=== PATIENT | female | born 1945 | race Caucasian/White ===

== ENCOUNTER 2020-06-27 21:26 | Inpatient (IN) ==
[2020-06-27] MEDS ORDERED: methylPREDNISolone 125 MG/2 ML VIAL IVP ONE (21:32)
[2020-06-27] MEDS ORDERED: Ipratropium/Albuterol Neb 3 ML IH ONE (21:32)
[2020-06-27] MEDS ORDERED: DilTIAZem 50 MG/50 ML IV.SOLN IVC SCH (21:52)
[2020-06-27 22:07] LABS: Basophils % 0.1 %; Hemoglobin 10.4 g/dL (11.5-15.4); Lymphocytes % 3.5 %; Nucleated Red Blood Cells 0.1 /100 WBC (0)
[2020-06-27 22:09] LABS: Hematocrit 36.8 % (35.3-44.9); Immature Granulocytes % 0.5 % (0-4); Lymphocytes # 0.8 K/mcL (0.6-4.6); Mean Corpuscular HGB Conc 28.3 g/dL (31.6-35.5); Mean Corpuscular Hemoglobin 22.2 pg (28.0-33.3); Mean Corpuscular Volume 78.6 fL (83.0-100.0); Mean Platelet Volume 9.3 fL (9.4-12.4); Monocytes # 1.8 K/mcL (0.0-1.3); Monocytes % 8.3 %; Neutrophils # 19.2 K/mcL (1.6-8.9); Platelet Count 487 K/mcL (140-400); Red Blood Count 4.68 M/mcL (3.82-4.97); Red Cell Distribution Width 25.3 % (11.5-14.5); Segmented Neutrophils % 87.6 %; White Blood Count 21.9 K/mcL (4.3-11.1)
[2020-06-27] MEDS ORDERED: cefTRIAXone 1,000 MG in 0.9 % Sodium Chloride Mini Bag 100 ML IVPB ONE (22:25)
[2020-06-27] MEDS ORDERED: Azithromycin 500 MG in 0.9 % Sodium Chloride 250 ML IVPB ONE (22:25)
[2020-06-27] MEDS ORDERED: cefTRIAXone 1,000 MG in Water for inj. (sterile) 10 ML IVP ONE (22:30)
[2020-06-27 22:31] LABS: Alanine Aminotransferase 30 Units/L (7-52); Albumin 4.1 g/dL (3.5-5.7); Albumin/Globulin Ratio 1.5 (1.1-2.2); Alkaline Phosphatase 70 Units/L (34-104); Aspartate Amino Transferase 24 Units/L (13-39); BUN/Creatinine Ratio 30 (6-26); Bilirubin,Direct 0.1 mg/dL (0.0-0.2); Bilirubin,Indirect 0.4 mg/dL (0.0-1.0); Bilirubin,Total 0.5 mg/dL (0.3-1.0); Blood Urea Nitrogen 25 mg/dL (8-23); Calcium 9.1 mg/dL (8.6-10.3); Carbon Dioxide 21 mEq/L (23-29); Chloride 105 mEq/L (98-107); Globulin 2.8 g/dL (2.4-3.5); Glucose 318 mg/dL (70-105); Osmolality,Calculated 301 (280-300); Potassium 4.8 mEq/L (3.5-5.1); Sodium 137 mEq/L (136-145); Total Protein 6.9 g/dL (6.4-8.9); eGFR For African Americans > 60 (> 60); eGFR For Non-African Americans > 60 (> 60)
[2020-06-27 22:38] LABS: Troponin I 0.82 ng/mL (< 0.04)
[2020-06-27 22:40] LABS: Burr Cells 1+ (Not Present); Platelet Clumps Few (Not Present); Schistocytes 1+ (Not Present)
[2020-06-27 22:41] LABS: Acanthocytes 1+ (Not Present); Poikilocytosis 1+ (Not Present)
[2020-06-27 22:44] LABS: Anisocytosis 3+ (Not Present)
[2020-06-27 22:46] LABS: Reactive Lymphocytes Present (Not Present)
[2020-06-27] MEDS ORDERED: *HR* Heparin 5,000 UNIT/ML VIAL IVP ONE (23:16)
[2020-06-27] MEDS ORDERED: *HR* Heparin 5,000 UNIT/ML VIAL IVP PRN (23:16)
[2020-06-27] MEDS ORDERED: Aspirin 81 MG TAB.CHEW PO ONE (23:17)
[2020-06-27] MEDS ORDERED: Furosemide 40 MG/4 ML VIAL IVP ONE (23:18)
[2020-06-27] MEDS ORDERED: Ondansetron 4 MG/2 ML VIAL IVP PRN (23:39)
[2020-06-27] MEDS ORDERED: Acetaminophen 325 MG TABLET PO PRN (23:39)
[2020-06-27] MEDS ORDERED: Naloxone 0.4 MG/ML INJ IVP PRN (23:39)
[2020-06-28] MEDS ORDERED: Dextrose Gel 15 GM/37.5 ML TUBE PO PRN ×2 (00:33)
[2020-06-28] MEDS ORDERED: D5% in Water 1,000 ML IVC PRN (00:33)
[2020-06-28] MEDS ORDERED: *HR* Dextrose 50 % in Water (Vial) 50 ML VIAL IVP PRN (00:33)
[2020-06-28] MEDS ORDERED: Perflutren Lipid Microsphere 1.3 ML in 0.9 % Sodium Chloride 8.7 ML IVP PRN (00:34)
[2020-06-28 01:11] LABS: Adenovirus Not Detected (Not Detect); Bordetella Pertussis Not Detected (Not Detect); Chlamydophila pneumoniae Not Detected (Not Detect); Coronavirus 229E Not Detected (Not Detect); Coronavirus HKU1 Not Detected (Not Detect); Coronavirus NL63 Not Detected (Not Detect); Coronavirus OC43 Not Detected (Not Detect); Human Metapneumovirus Not Detected (Not Detect); Human Rhinovirus/Enterovirus DETECTED (Not Detect); Influenza A Subtype 2009 H1 Not Detected (Not Detect); Influenza B Not Detected (Not Detect); Mycoplasma pneumoniae Not Detected (Not Detect); Parainfluenza Virus 1 Not Detected (Not Detect); Parainfluenza Virus 2 Not Detected (Not Detect); Parainfluenza Virus 3 Not Detected (Not Detect); Parainfluenza Virus 4 Not Detected (Not Detect); Respiratory Syncytial Virus Not Detected (Not Detect); SARS-CoV-2 Not Detected (Not Detect)
[2020-06-28 01:51] LABS: Hematocrit 38.7 % (35.3-44.9); Hemoglobin 10.8 g/dL (11.5-15.4); Mean Corpuscular HGB Conc 27.9 g/dL (31.6-35.5); Mean Corpuscular Hemoglobin 22.1 pg (28.0-33.3); Mean Corpuscular Volume 79.3 fL (83.0-100.0); Mean Platelet Volume 9.3 fL (9.4-12.4); Platelet Count 494 K/mcL (140-400); Red Blood Count 4.88 M/mcL (3.82-4.97); Red Cell Distribution Width 25.2 % (11.5-14.5); White Blood Count 27.1 K/mcL (4.3-11.1)
[2020-06-28] MEDS: Heparin 25,000UNIT/250ML 1/2NS 25,000 UNIT/250 ML IV.SOLN IVC SCH (01:52)
[2020-06-28 01:58] LABS: Heparin anti-factor XA UFH < 0.04 IU/mL (0.30-0.70)
[2020-06-28 02:01] LABS: ABG Base Excess -5 mEq/L (-2 to 3); ABG HCO3 25 mEq/L (21-27); ABG Oxygen Saturation 89 % (95-98); ABG PCO2 70 mmHg (35-45); ABG PH 7.16 pH Units (7.32-7.45); ABG PO2 72 mmHg (85-104); ABG TCO2 27 mEq/L (20-26)
[2020-06-28 02:39] LABS: ABG Base Excess -4 mEq/L (-2 to 3); ABG HCO3 25 mEq/L (21-27); ABG Oxygen Saturation 96 % (95-98); ABG PCO2 63 mmHg (35-45); ABG PH 7.21 pH Units (7.32-7.45); ABG PO2 105 mmHg (85-104); ABG TCO2 27 mEq/L (20-26); Blood Gas VT 500 cc
[2020-06-28] MEDS ORDERED: *HR* Metoprolol 5 MG/5 ML VIAL IVP ONE (02:53)
[2020-06-28 02:58] LABS: Bilirubin,Urine Negative (Negative); Blood,Urine Trace (Negative); Clarity,Urine Clear (Clear); Color,Urine Light-Yellow (Yellow); Glucose,Urine (UA) Normal (Normal); Hyaline Casts,Urine Many per lpf (None Seen); Ketones,Urine Negative (Negative); Leukocyte Esterase,Urine Negative (Negative); Mucus,Urine Few per lpf (None-Few); Nitrite,Urine Negative (Negative); PH,Urine 5.5 pH Units (5.0-8.0); Protein,Urine 50 mg/dL (Neg-Trace); RBC,Urine 0-3 per hpf (0-3); Specific Gravity,Urine 1.013 (1.010-1.025); Squamous Epithelial Cell,Urine Few per hpf (None-Few); Urobilinogen,Urine Normal (Normal)
[2020-06-28] MEDS ORDERED: *HR* LORazepam 2 MG/ML VIAL IVP ONE (03:30)
[2020-06-28] MEDS ORDERED: *HR* LORazepam 2 MG/ML VIAL ONE (03:32)
[2020-06-28 04:14] LABS: VBG HCO3 23 mEq/L (21-27); VBG Ionized Calcium 1.11 mmol/L (1.15-1.35); VBG PCO2 63 mmHg (41-51); VBG PH 7.17 pH Units (7.32-7.42); VBG PO2 70 mmHg (25-50)
[2020-06-28 04:15] LABS: Basophils % 0.1 %; Hemoglobin 10.5 g/dL (11.5-15.4); Nucleated Red Blood Cells 0.1 /100 WBC (0)
[2020-06-28 04:16] LABS: Hematocrit 37.3 % (35.3-44.9); Immature Granulocytes % 1.1 % (0-4); Lymphocytes # 0.5 K/mcL (0.6-4.6); Lymphocytes % 1.8 %; Mean Corpuscular HGB Conc 28.2 g/dL (31.6-35.5); Mean Corpuscular Hemoglobin 22.6 pg (28.0-33.3); Mean Corpuscular Volume 80.2 fL (83.0-100.0); Mean Platelet Volume 9.3 fL (9.4-12.4); Monocytes # 2.3 K/mcL (0.0-1.3); Neutrophils # 25.3 K/mcL (1.6-8.9); Platelet Count 416 K/mcL (140-400); Red Blood Count 4.65 M/mcL (3.82-4.97); White Blood Count 28.4 K/mcL (4.3-11.1)
[2020-06-28] MEDS ORDERED: Artificial Tears SOLN 15 ML BOTTLE BOTH EYES PRN (04:17)
[2020-06-28] MEDS ORDERED: 0.9 % Sodium Chloride 1,000 ML ONE ×2 (04:31→04:39)
[2020-06-28 04:39] LABS: Estimated Average Glucose 111 mg/dl
[2020-06-28] MEDS: Norepinephrine 4 MG/254 ML IV.SOLN IVC SCH (04:50)
[2020-06-28 05:05] LABS: ABG Base Excess -9 mEq/L (-2 to 3); ABG HCO3 18 mEq/L (21-27); ABG Oxygen Saturation 99 % (95-98); ABG PCO2 44 mmHg (35-45); ABG PH 7.22 pH Units (7.32-7.45); ABG PO2 164 mmHg (85-104); ABG TCO2 19 mEq/L (20-26); Blood Gas VT 480 cc
[2020-06-28 05:15] LABS: Anisocytosis 1+ (Not Present); Poikilocytosis 2+ (Not Present)
[2020-06-28 05:16] LABS: Burr Cells 1+ (Not Present); Platelet Estimate Normal (Normal); Toxic Granulation Present (Not Present)
[2020-06-28] MEDS: FentaNYL (PF) 1,000 MCG/100 ML IV.SOLN IVC SCH ×2 (05:34→16:44)
[2020-06-28] MEDS: Insulin LISPRO 300 UNITS/3 ML VIAL SQ SCH ×3 (07:44→17:26)
[2020-06-28] MEDS: Artificial Tears SOLN 15 ML BOTTLE BOTH EYES SCH ×5 (07:54→23:50)
[2020-06-28] MEDS: Chlorhexidine Rinse 15 ML MOUTHWASH MM SCH ×2 (07:56→20:24)
[2020-06-28] MEDS: Pantoprazole 40 MG VIAL IVP SCH (07:56)
[2020-06-28] MEDS: Piperacillin/Tazobactam 3.375 GM in 0.9 % Sodium Chloride Mini Bag 100 ML IVPB SCH ×3 (07:56→23:50)
[2020-06-28] MEDS: Ipratropium/Albuterol Neb 3 ML IH SCH ×4 (08:12→20:35)
[2020-06-28 09:28] LABS: Calcium 9.3 mg/dL (8.6-10.3); Magnesium 3.9 mg/dL (1.6-2.6); Phosphorous 8.9 mg/dL (2.7-4.5); Potassium 5.4 mEq/L (3.5-5.1)
[2020-06-28] MEDS: Budesonide/Formoterol 160/4.5 1 PUFF INH IH SCH ×2 (09:55→21:28)
[2020-06-28] MEDS ORDERED: Calcium Gluconate 1gm/50mL 1 GM/50 ML BAG IVPB PRN (10:03)
[2020-06-28] MEDS ORDERED: Potassium Phosphate 44 MEQ in 0.9 % Sodium Chloride 250 ML IVPB PRN (10:03)
[2020-06-28 10:12] LABS: Troponin I 1.21 ng/mL (< 0.04)
[2020-06-28] MEDS ORDERED: Calcium Gluconate 1gm/50mL 1 GM/50 ML BAG IVPB ONE ×2 (10:18→10:53)
[2020-06-28] MEDS: Dexmedetomidine HCl 400 MCG/100 ML MLS IVC SCH (10:44)
[2020-06-28 10:59] LABS: Calcium 7.9 mg/dL (8.6-10.3); Potassium 5.1 mEq/L (3.5-5.1)
[2020-06-28 11:04] LABS: Troponin I 2.49 ng/mL (< 0.04)
[2020-06-28] MEDS: Ringers Solution, Lactated 1,000 ML IVC SCH (11:30)
[2020-06-28] MEDS: Aspirin 81 MG TAB.CHEW PO SCH (12:40)
[2020-06-28 13:58] LABS: Basophils % 0.1 %; Hematocrit 31.7 % (35.3-44.9); Hemoglobin 9.1 g/dL (11.5-15.4); Immature Granulocytes % 0.9 % (0-4); Lymphocytes # 0.3 K/mcL (0.6-4.6); Lymphocytes % 1.1 %; Mean Corpuscular HGB Conc 28.7 g/dL (31.6-35.5); Mean Corpuscular Hemoglobin 22.3 pg (28.0-33.3); Mean Corpuscular Volume 77.7 fL (83.0-100.0); Mean Platelet Volume 9.3 fL (9.4-12.4); Monocytes % 2.7 %; Nucleated Red Blood Cells 0.4 /100 WBC (0); Platelet Count 265 K/mcL (140-400); Red Blood Count 4.08 M/mcL (3.82-4.97); Red Cell Distribution Width 24.3 % (11.5-14.5); Segmented Neutrophils % 95.2 %; White Blood Count 27.3 K/mcL (4.3-11.1)
[2020-06-28 13:59] LABS: Monocytes # 0.7 K/mcL (0.0-1.3)
[2020-06-28 14:10] LABS: Anisocytosis 2+ (Not Present); Hypochromasia Present (Not Present); Microcytosis Present (Not Present); Platelet Estimate Normal (Normal); Poikilocytosis 2+ (Not Present); Toxic Granulation Present (Not Present)
[2020-06-28 14:12] LABS: Target Cells 1+ (Not Present)
[2020-06-28 14:13] LABS: Acanthocytes 1+ (Not Present)
[2020-06-28] MEDS: *HR* Heparin 5,000 UNIT/ML VIAL IVP PRN (17:40)
[2020-06-28] MEDS ORDERED: *HR* Etomidate 20 MG/10 ML AMPUL IVP ONE (18:00)
[2020-06-28] MEDS ORDERED: *HR* Midazolam HCl 2 MG/2 ML VIAL IV ONE (18:00)
[2020-06-28] MEDS: Levalbuterol Neb 0.63 MG/3 ML IH SCH (21:28)
[2020-06-29] MEDS: Insulin LISPRO 300 UNITS/3 ML VIAL SQ SCH ×4 (00:03→17:23)
[2020-06-29] MEDS: Ringers Solution, Lactated 1,000 ML IVC SCH (00:54)
[2020-06-29] MEDS ORDERED: Vancomycin 500 MG in 0.9 % Sodium Chloride Mini Bag 100 ML IVPB SCH (01:00)
[2020-06-29] MEDS: FentaNYL (PF) 1,000 MCG/100 ML IV.SOLN IVC SCH ×2 (02:44→16:13)
[2020-06-29] MEDS: Levalbuterol Neb 0.63 MG/3 ML IH SCH ×4 (03:53→22:18)
[2020-06-29 04:14] LABS: ABG Base Excess -5 mEq/L (-2 to 3); ABG HCO3 23 mEq/L (21-27); ABG Oxygen Saturation 97 % (95-98); ABG PCO2 54 mmHg (35-45); ABG PH 7.24 pH Units (7.32-7.45); ABG PO2 104 mmHg (85-104); ABG TCO2 25 mEq/L (20-26); Blood Gas VT 550 cc
[2020-06-29] MEDS: Artificial Tears SOLN 15 ML BOTTLE BOTH EYES SCH ×6 (04:31→23:36)
[2020-06-29 05:04] LABS: Basophils % 0.1 %
[2020-06-29 05:06] LABS: Hematocrit 30.4 % (35.3-44.9); Hemoglobin 8.6 g/dL (11.5-15.4); Immature Granulocytes % 0.8 % (0-4); Lymphocytes # 0.5 K/mcL (0.6-4.6); Lymphocytes % 2.4 %; Mean Corpuscular HGB Conc 28.3 g/dL (31.6-35.5); Mean Corpuscular Volume 77.7 fL (83.0-100.0); Mean Platelet Volume 9.3 fL (9.4-12.4); Monocytes # 0.4 K/mcL (0.0-1.3); Monocytes % 2.1 %; Neutrophils # 19.2 K/mcL (1.6-8.9); Nucleated Red Blood Cells 1.9 /100 WBC (0); Platelet Count 138 K/mcL (140-400); Red Blood Count 3.91 M/mcL (3.82-4.97); Red Cell Distribution Width 24.1 % (11.5-14.5); Segmented Neutrophils % 94.6 %; White Blood Count 20.3 K/mcL (4.3-11.1)
[2020-06-29 05:21] LABS: Calcium 8.4 mg/dL (8.6-10.3); Potassium 4.8 mEq/L (3.5-5.1)
[2020-06-29 05:22] LABS: Magnesium 2.8 mg/dL (1.6-2.6)
[2020-06-29 05:25] LABS: Troponin I 1.62 ng/mL (< 0.04)
[2020-06-29] MEDS: Norepinephrine 4 MG/254 ML IV.SOLN IVC SCH (05:34)
[2020-06-29] MEDS: Pantoprazole 40 MG VIAL IVP SCH (05:35)
[2020-06-29] MEDS: Dexmedetomidine HCl 400 MCG/100 ML MLS IVC SCH (05:35)
[2020-06-29] MEDS: *HR* Heparin 5,000 UNIT/ML VIAL IVP PRN (06:15)
[2020-06-29 06:57] LABS: Anisocytosis 1+ (Not Present); Poikilocytosis 1+ (Not Present)
[2020-06-29 06:58] LABS: Hypochromasia Present (Not Present); Platelet Estimate Normal (Normal)
[2020-06-29 07:26] LABS: Sodium, Urine 60.4 mEq/L
[2020-06-29] MEDS: Piperacillin/Tazobactam 3.375 GM in 0.9 % Sodium Chloride Mini Bag 100 ML IVPB SCH ×3 (08:50→23:35)
[2020-06-29] MEDS: Aspirin 81 MG TAB.CHEW PO SCH (08:51)
[2020-06-29] MEDS: Chlorhexidine Rinse 15 ML MOUTHWASH MM SCH ×2 (08:51→20:24)
[2020-06-29] MEDS: Budesonide/Formoterol 160/4.5 1 PUFF INH IH SCH ×2 (09:23→22:18)
[2020-06-29] MEDS: MethylPREDNISolone 40 MG/ML VIAL IVP SCH (12:45)
[2020-06-29] MEDS: Heparin 25,000UNIT/250ML 1/2NS 25,000 UNIT/250 ML IV.SOLN IVC SCH (19:00)
[2020-06-30] MEDS: Dexmedetomidine HCl 400 MCG/100 ML MLS IVC SCH (00:49)
[2020-06-30] MEDS: FentaNYL (PF) 1,000 MCG/100 ML IV.SOLN IVC SCH (02:13)
[2020-06-30] MEDS: Artificial Tears SOLN 15 ML BOTTLE BOTH EYES SCH ×6 (03:38→23:38)
[2020-06-30 03:57] LABS: Hemoglobin 8.7 g/dL (11.5-15.4); Lymphocytes % 1.2 %; Monocytes % 3.3 %; Nucleated Red Blood Cells 2.9 /100 WBC (0)
[2020-06-30 03:59] LABS: Basophils % 0.1 %; Hematocrit 30.4 % (35.3-44.9); Immature Granulocytes % 0.9 % (0-4); Immature Platelets 6.5 % (1.1-6.1); Lymphocytes # 0.3 K/mcL (0.6-4.6); Mean Corpuscular HGB Conc 28.6 g/dL (31.6-35.5); Mean Corpuscular Hemoglobin 22.1 pg (28.0-33.3); Mean Corpuscular Volume 77.2 fL (83.0-100.0); Mean Platelet Volume 10.6 fL (9.4-12.4); Monocytes # 0.8 K/mcL (0.0-1.3); Neutrophils # 22.6 K/mcL (1.6-8.9); Red Blood Count 3.94 M/mcL (3.82-4.97); Segmented Neutrophils % 94.5 %; White Blood Count 23.9 K/mcL (4.3-11.1)
[2020-06-30] MEDS: Levalbuterol Neb 0.63 MG/3 ML IH SCH ×4 (04:12→22:04)
[2020-06-30 04:17] LABS: Calcium 8.9 mg/dL (8.6-10.3); Magnesium 2.8 mg/dL (1.6-2.6); Phosphorous 5.7 mg/dL (2.7-4.5); Potassium 5.3 mEq/L (3.5-5.1)
[2020-06-30 04:26] LABS: Platelet Count 78 K/mcL (140-400); Poikilocytosis 1+ (Not Present)
[2020-06-30 04:27] LABS: Anisocytosis 1+ (Not Present); Hypochromasia Present (Not Present); Ovalocytes 1+ (Not Present); Target Cells 1+ (Not Present); Toxic Granulation Present (Not Present); Toxic Vacuolation Present (Not Present)
[2020-06-30 04:28] LABS: Platelet Estimate Decreased (Normal); Schistocytes 1+ (Not Present)
[2020-06-30 04:43] LABS: ABG Base Excess -5 mEq/L (-2 to 3); ABG HCO3 24 mEq/L (21-27); ABG Oxygen Saturation 95 % (95-98); ABG PCO2 60 mmHg (35-45); ABG PH 7.21 pH Units (7.32-7.45); ABG PO2 94 mmHg (85-104); ABG TCO2 26 mEq/L (20-26); Blood Gas Modality ASSIST CONTROL; Blood Gas VT 470 cc
[2020-06-30] MEDS: Insulin LISPRO 300 UNITS/3 ML VIAL SQ SCH ×5 (06:06→23:38)
[2020-06-30] MEDS: Pantoprazole 40 MG VIAL IVP SCH (06:06)
[2020-06-30] MEDS: Norepinephrine 4 MG/254 ML IV.SOLN IVC SCH (06:06)
[2020-06-30] MEDS ORDERED: Ringers Solution, Lactated 1,000 ML IVC SCH (06:30)
[2020-06-30] MEDS ORDERED: Furosemide 20 MG/2 ML VIAL IVP ONE (07:28)
[2020-06-30] MEDS ORDERED: *HR* Metoprolol 5 MG/5 ML VIAL IVP ONE ×2 (07:47→19:38)
[2020-06-30] MEDS: MethylPREDNISolone 40 MG/ML VIAL IVP SCH (08:13)
[2020-06-30] MEDS: Piperacillin/Tazobactam 3.375 GM in 0.9 % Sodium Chloride Mini Bag 100 ML IVPB SCH (08:13)
[2020-06-30] MEDS: Aspirin 81 MG TAB.CHEW PO SCH (08:13)
[2020-06-30] MEDS: Chlorhexidine Rinse 15 ML MOUTHWASH MM SCH ×2 (08:13→20:45)
[2020-06-30] MEDS: Nystatin Cream 15 GM TUBE TP SCH ×3 (08:14→20:46)
[2020-06-30] MEDS: Budesonide/Formoterol 160/4.5 1 PUFF INH IH SCH ×2 (09:29→22:04)
[2020-06-30] MEDS: Argatroban 250 MG in 0.9 % Sodium Chloride 250 ML IVC SCH (13:08)
[2020-06-30 13:47] LABS: INR 1.2; Prothrombin Time 14.1 Seconds (9.4-12.1)
[2020-06-30 13:49] LABS: Activated Partial Thrombo Time 28.2 Seconds (26.0-36.0)
[2020-06-30 13:59] LABS: Calcium 8.9 mg/dL (8.6-10.3); Potassium 4.6 mEq/L (3.5-5.1)
[2020-06-30 14:14] LABS: Albumin 3.2 g/dL (3.5-5.7); Albumin/Globulin Ratio 1.5 (1.1-2.2); Bilirubin,Direct 0.4 mg/dL (0.0-0.2); Bilirubin,Indirect 0.6 mg/dL (0.0-1.0); Globulin 2.1 g/dL (2.4-3.5); Total Protein 5.3 g/dL (6.4-8.9)
[2020-06-30] MEDS ORDERED: 0.9 % Sodium Chloride 500 ML ONE (16:04)
[2020-06-30] MEDS: Cefepime HCl 1,000 MG in 0.9 % Sodium Chloride Mini Bag 100 ML IVP SCH (17:00)
[2020-06-30 18:32] LABS: Retculocyte # 0.04 M/mcL (0.05-0.10); Reticulocyte % 1.1 % (1.6-2.8)
[2020-06-30 18:48] LABS: % Iron Saturation 7 % (15-50); Iron 22 mcg/dL (50-170); Lactate Dehydrogenase 312 Units/L (140-271); Transferrin 224 mg/dL (203-362)
[2020-06-30 19:06] LABS: Ferritin 267 ng/mL (10-120)
[2020-06-30 19:35] LABS: Folate 19.3 ng/mL (3.0-16.0); Vitamin B12 > 1500 pg/mL (250-1100)
[2020-07-01] MEDS: Artificial Tears SOLN 15 ML BOTTLE BOTH EYES SCH ×5 (03:56→20:39)
[2020-07-01] MEDS: Cefepime HCl 1,000 MG in 0.9 % Sodium Chloride Mini Bag 100 ML IVP SCH ×2 (03:56→16:01)
[2020-07-01 04:31] LABS: Basophils % 0.1 %; Hemoglobin 8.6 g/dL (11.5-15.4)
[2020-07-01] MEDS: Levalbuterol Neb 0.63 MG/3 ML IH SCH ×4 (04:31→21:37)
[2020-07-01 04:33] LABS: Hematocrit 29.4 % (35.3-44.9); Immature Granulocytes % 0.7 % (0-4); Immature Platelets 5.5 % (1.1-6.1); Lymphocytes # 0.4 K/mcL (0.6-4.6); Lymphocytes % 1.6 %; Mean Corpuscular HGB Conc 29.3 g/dL (31.6-35.5); Mean Corpuscular Hemoglobin 22.6 pg (28.0-33.3); Mean Corpuscular Volume 77.2 fL (83.0-100.0); Mean Platelet Volume 10.3 fL (9.4-12.4); Monocytes # 1.1 K/mcL (0.0-1.3); Monocytes % 4.8 %; Neutrophils # 20.4 K/mcL (1.6-8.9); Red Blood Count 3.81 M/mcL (3.82-4.97); Red Cell Distribution Width 24.3 % (11.5-14.5); Segmented Neutrophils % 92.8 %
[2020-07-01 04:47] LABS: Calcium 9.1 mg/dL (8.6-10.3); Magnesium 2.7 mg/dL (1.6-2.6); Phosphorous 4.2 mg/dL (2.7-4.5); Potassium 4.3 mEq/L (3.5-5.1)
[2020-07-01 05:16] LABS: Platelet Count 99 K/mcL (140-400)
[2020-07-01] MEDS: Insulin LISPRO 300 UNITS/3 ML VIAL SQ SCH ×3 (05:58→17:57)
[2020-07-01] MEDS: Pantoprazole 40 MG VIAL IVP SCH (06:00)
[2020-07-01] MEDS: Chlorhexidine Rinse 15 ML MOUTHWASH MM SCH ×2 (07:26→20:39)
[2020-07-01] MEDS: Aspirin 81 MG TAB.CHEW PO SCH (07:45)
[2020-07-01] MEDS: MethylPREDNISolone 40 MG/ML VIAL IVP SCH (07:45)
[2020-07-01] MEDS ORDERED: Furosemide 20 MG/2 ML VIAL IVP ONE (08:58)
[2020-07-01] MEDS: Nystatin Cream 15 GM TUBE TP SCH ×3 (09:40→20:40)
[2020-07-01] MEDS: Dexmedetomidine HCl 400 MCG/100 ML MLS IVC SCH ×2 (09:41→11:04)
[2020-07-01] MEDS: Budesonide/Formoterol 160/4.5 1 PUFF INH IH SCH ×2 (10:37→21:36)
[2020-07-01] MEDS ORDERED: Levalbuterol Neb 1.25 MG/3 ML IH PRN (11:43)
[2020-07-01] MEDS ORDERED: Ipratropium Neb 0.5 MG NEBULIZER IH PRN (11:43)
[2020-07-01] MEDS ORDERED: Ipratropium Neb 0.5 MG NEBULIZER ONE (11:50)
[2020-07-01] MEDS ORDERED: *HR* Labetalol 20 MG/4 ML SYRINGE IVP PRN (13:08)
[2020-07-01] MEDS: Argatroban 250 MG in 0.9 % Sodium Chloride 250 ML IVC SCH (15:59)
[2020-07-01] MEDS ORDERED: *HR* Metoprolol 5 MG/5 ML VIAL IVP ONE (17:34)
[2020-07-01 22:10] LABS: BUN/Creatinine Ratio 68 (6-26); Blood Urea Nitrogen 72 mg/dL (8-23); Calcium 9.9 mg/dL (8.6-10.3); Carbon Dioxide 30 mEq/L (23-29); Chloride 115 mEq/L (98-107); Glucose 120 mg/dL (70-105); Osmolality,Calculated 340 (280-300); Potassium 3.9 mEq/L (3.5-5.1); Sodium 154 mEq/L (136-145); eGFR For African Americans > 60 (> 60); eGFR For Non-African Americans 51 (> 60)
[2020-07-01] MEDS ORDERED: D5% in Water 1,000 ML IVC SCH (23:15)
[2020-07-02] MEDS: Artificial Tears SOLN 15 ML BOTTLE BOTH EYES SCH ×6 (00:13→20:57)
[2020-07-02] MEDS: Insulin LISPRO 300 UNITS/3 ML VIAL SQ SCH ×4 (00:13→21:15)
[2020-07-02] MEDS: Levalbuterol Neb 0.63 MG/3 ML IH SCH ×4 (03:09→21:57)
[2020-07-02] MEDS: FentaNYL (PF) 1,000 MCG/100 ML IV.SOLN IVC SCH ×2 (03:52→17:23)
[2020-07-02] MEDS: Cefepime HCl 1,000 MG in 0.9 % Sodium Chloride Mini Bag 100 ML IVP SCH ×2 (03:52→16:12)
[2020-07-02] MEDS: Pantoprazole 40 MG VIAL IVP SCH (05:20)
[2020-07-02 05:48] LABS: Basophils % 0.1 %; Mean Corpuscular HGB Conc 29.6 g/dL (31.6-35.5); Mean Corpuscular Hemoglobin 21.7 pg (28.0-33.3); Red Cell Distribution Width 24.6 % (11.5-14.5)
[2020-07-02 05:48] LABS: VBG Ionized Calcium 1.27 mmol/L (1.15-1.35)
[2020-07-02 05:50] LABS: Hematocrit 35.1 % (35.3-44.9); Hemoglobin 10.4 g/dL (11.5-15.4); Immature Granulocytes % 0.8 % (0-4); Immature Platelets 7.2 % (1.1-6.1); Lymphocytes # 0.6 K/mcL (0.6-4.6); Lymphocytes % 2.4 %; Mean Corpuscular Volume 73.1 fL (83.0-100.0); Monocytes # 1.9 K/mcL (0.0-1.3); Monocytes % 7.6 %; Nucleated Red Blood Cells 0.8 /100 WBC (0); Platelet Count 126 K/mcL (140-400); Segmented Neutrophils % 89.1 %; White Blood Count 25.1 K/mcL (4.3-11.1)
[2020-07-02 06:24] LABS: Alanine Aminotransferase 1512 Units/L (7-52); Albumin 3.4 g/dL (3.5-5.7); Albumin/Globulin Ratio 1.5 (1.1-2.2); Alkaline Phosphatase 68 Units/L (34-104); Aspartate Amino Transferase 117 Units/L (13-39); BUN/Creatinine Ratio 69 (6-26); Bilirubin,Total 1.3 mg/dL (0.3-1.0); Blood Urea Nitrogen 72 mg/dL (8-23); Calcium 9.8 mg/dL (8.6-10.3); Carbon Dioxide 31 mEq/L (23-29); Chloride 114 mEq/L (98-107); Globulin 2.3 g/dL (2.4-3.5); Glucose 149 mg/dL (70-105); Magnesium 2.4 mg/dL (1.6-2.6); Osmolality,Calculated 342 (280-300); Phosphorous 3.3 mg/dL (2.7-4.5); Potassium 3.7 mEq/L (3.5-5.1); Sodium 154 mEq/L (136-145); Total Protein 5.7 g/dL (6.4-8.9); eGFR For African Americans > 60 (> 60); eGFR For Non-African Americans 52 (> 60)
[2020-07-02 06:40] LABS: Neutrophils # 22.4 K/mcL (1.6-8.9)
[2020-07-02 06:42] LABS: Anisocytosis 3+ (Not Present); Microcytosis Present (Not Present); Poikilocytosis 3+ (Not Present)
[2020-07-02 06:43] LABS: Burr Cells 1+ (Not Present); Platelet Estimate Slight Decrease (Normal); Schistocytes 1+ (Not Present); Target Cells 2+ (Not Present)
[2020-07-02 06:44] LABS: Hypochromasia Present (Not Present)
[2020-07-02] MEDS: Potassium Chloride 40 MEQ/200 ML BAG IVPB PRN ×2 (06:47→07:49)
[2020-07-02] MEDS: Chlorhexidine Rinse 15 ML MOUTHWASH MM SCH ×2 (07:51→20:57)
[2020-07-02] MEDS: Aspirin 81 MG TAB.CHEW PO SCH ×2 (08:02→08:29)
[2020-07-02] MEDS: Nitroglycerin 1 INCH/GM PACKET TP SCH ×2 (08:14→11:46)
[2020-07-02] MEDS: Nystatin Cream 15 GM TUBE TP SCH ×3 (08:19→20:57)
[2020-07-02] MEDS ORDERED: Furosemide 40 MG/4 ML VIAL IVP ONE ×2 (08:26→16:21)
[2020-07-02] MEDS ORDERED: predniSONE 20 MG TABLET PO SCH (09:00)
[2020-07-02] MEDS: Argatroban 250 MG in 0.9 % Sodium Chloride 250 ML IVC SCH (09:27)
[2020-07-02] MEDS: Budesonide/Formoterol 160/4.5 1 PUFF INH IH SCH ×2 (10:32→21:56)
[2020-07-02] MEDS ORDERED: predniSONE 20 MG TABLET PO ONE (11:00)
[2020-07-02] MEDS: Dexmedetomidine HCl 400 MCG/100 ML MLS IVC SCH (11:09)
[2020-07-02] MEDS ORDERED: MethylPREDNISolone 40 MG/ML VIAL IVP ONE (11:45)
[2020-07-02] MEDS ORDERED: *HR* FentaNYL (PF) 100 MCG/2 ML VIAL ONE (16:41)
[2020-07-02] MEDS ORDERED: Norepinephrine 4 MG/254 ML IV.SOLN IVC SCH (16:45)
[2020-07-02] MEDS ORDERED: Artificial Tears SOLN 15 ML BOTTLE BOTH EYES PRN (17:01)
[2020-07-02] MEDS: Midazolam HCl 50 MG/100 ML IV.SOLN IVC SCH (17:28)
[2020-07-02 18:10] LABS: ABG Base Excess 5 mEq/L (-2 to 3); ABG HCO3 31 mEq/L (21-27); ABG Oxygen Saturation 96 % (95-98); ABG PCO2 49 mmHg (35-45); ABG PH 7.41 pH Units (7.32-7.45); ABG PO2 83 mmHg (85-104); ABG TCO2 32 mEq/L (20-26); Blood Gas Modality AF; Blood Gas VT 380 cc
[2020-07-03] MEDS: Cefepime HCl 1,000 MG in Water for inj. (sterile) 10 ML IVP SCH ×2 (00:58→08:14)
[2020-07-03] MEDS: Artificial Tears SOLN 15 ML BOTTLE BOTH EYES SCH ×4 (01:02→12:07)
[2020-07-03] MEDS: Insulin LISPRO 300 UNITS/3 ML VIAL SQ SCH ×3 (01:03→12:07)
[2020-07-03] MEDS: Levalbuterol Neb 0.63 MG/3 ML IH SCH ×3 (03:38→15:11)
[2020-07-03 04:36] LABS: ABG Base Excess 3 mEq/L (-2 to 3); ABG HCO3 29 mEq/L (21-27); ABG Oxygen Saturation 95 % (95-98); ABG PCO2 49 mmHg (35-45); ABG PH 7.38 pH Units (7.32-7.45); ABG PO2 79 mmHg (85-104); ABG TCO2 31 mEq/L (20-26); Blood Gas Modality ASSIST CONTROL; Blood Gas VT 380 cc
[2020-07-03] MEDS: Midazolam HCl 50 MG/100 ML IV.SOLN IVC SCH (05:00)
[2020-07-03 05:12] LABS: VBG Ionized Calcium 1.24 mmol/L (1.15-1.35)
[2020-07-03 05:14] LABS: Hematocrit 34.2 % (35.3-44.9); Lymphocytes % 2.5 %; Nucleated Red Blood Cells 0.5 /100 WBC (0)
[2020-07-03 05:16] LABS: Basophils % 0.1 %; Hemoglobin 9.9 g/dL (11.5-15.4); Immature Granulocytes % 0.7 % (0-4); Immature Platelets 8.5 % (1.1-6.1); Lymphocytes # 0.6 K/mcL (0.6-4.6); Mean Corpuscular HGB Conc 28.9 g/dL (31.6-35.5); Mean Corpuscular Hemoglobin 22.3 pg (28.0-33.3); Monocytes # 1.8 K/mcL (0.0-1.3); Monocytes % 6.9 %; Neutrophils # 23.1 K/mcL (1.6-8.9); Platelet Count 127 K/mcL (140-400); Red Blood Count 4.44 M/mcL (3.82-4.97); Red Cell Distribution Width 24.6 % (11.5-14.5); Segmented Neutrophils % 89.8 %; White Blood Count 25.7 K/mcL (4.3-11.1)
[2020-07-03 05:49] LABS: Anisocytosis 3+ (Not Present); Microcytosis Present (Not Present)
[2020-07-03 05:50] LABS: Platelet Estimate Decreased (Normal); Schistocytes 1+ (Not Present); Target Cells 2+ (Not Present)
[2020-07-03 05:51] LABS: Albumin 3.4 g/dL (3.5-5.7); Albumin/Globulin Ratio 1.5 (1.1-2.2); Bilirubin,Direct 0.3 mg/dL (0.0-0.2); Bilirubin,Indirect 0.7 mg/dL (0.0-1.0); Burr Cells 1+ (Not Present); Calcium 9.6 mg/dL (8.6-10.3); Globulin 2.3 g/dL (2.4-3.5); Magnesium 2.6 mg/dL (1.6-2.6); Phosphorous 5.3 mg/dL (2.7-4.5); Poikilocytosis 3+ (Not Present); Total Protein 5.7 g/dL (6.4-8.9)
[2020-07-03] MEDS: Nitroglycerin 1 INCH/GM PACKET TP SCH ×2 (06:30→12:14)
[2020-07-03] MEDS: Pantoprazole 40 MG VIAL IVP SCH (06:37)
[2020-07-03] MEDS: Aspirin 81 MG TAB.CHEW PO SCH (08:14)
[2020-07-03] MEDS: Chlorhexidine Rinse 15 ML MOUTHWASH MM SCH (08:14)
[2020-07-03] MEDS ORDERED: MethylPREDNISolone 40 MG/ML VIAL IVP SCH (09:00)
[2020-07-03] MEDS: FentaNYL (PF) 1,000 MCG/100 ML IV.SOLN IVC SCH ×2 (09:04)
[2020-07-03] MEDS: Nystatin Cream 15 GM TUBE TP SCH (10:10)
[2020-07-03] MEDS: Budesonide/Formoterol 160/4.5 1 PUFF INH IH SCH (10:23)
[2020-07-03] MEDS ORDERED: Dexmedetomidine HCl 400 MCG/100 ML MLS IVC SCH (12:15)
[2020-07-03 13:47] VITALS: BP 158/95
== END 2020-07-03 14:40 | disposition short-term general hospital (02) | DRG 871 ==
LOC: EMEROOARM 21:26 → 2NNU 21:26 → ICNU 06-28 01:33
PROVIDERS: ADMIT Internal Medicine; ATTEND Internal Medicine